=== PATIENT | male | born 1990 | race Caucasian/White ===

== ENCOUNTER 2016-12-15 09:21 | Emergency (ER) | payer SELFPAY ==
[~2016-12-15 09:21] MED LIST: AUGMENTIN PO; NAPROXEN500 M1 PO; PERCOCET5/325 PO
== END 2016-12-15 10:00 | disposition home or self-care (01) ==
LOC: SED 09:21
DX: S39.012A Strain of muscle, fascia and tendon of lower back, initial encounter (principal); X58.XXXA Exposure to other specified factors, initial encounter
CPT/HCPCS: 99283